=== PATIENT | female | born 1955 | race Caucasian/White ===

== ENCOUNTER 2020-01-07 12:11 | Emergency (ER) | payer OTHER ==
[~2020-01-07] VITALS: Ht 170.2 cm; Wt 118.2 kg
[2020-01-07 12:47] VITALS: BP 115/63
[2020-01-07] MEDS ORDERED: ONDANSETRON PF 4 MG/2 ML VIAL. IVP ONE (13:15)
--- NOTE | 2020-01-07 13:18 | PHYS DOC ---
Past History Past Medical History: Hypertension Past Surgical History: Cholecystectomy Alcohol Use: None General Adult EDM: Chief Complaint: DIARRHEA HPI: HPI: Patient is a 64-year-old female with complaint of diarrhea. Patient has been sick for the past 8 days, has been diagnosed with Covid yesterday, her test has not come back yet. Patient has had intermittent fevers usually at night, some nausea, cough, malaise, fatigue, explosive diarrhea. States her diarrhea is yellow and watery. She has episodes throughout the day and is unsure of how many. Review of Systems: Review of Systems: Constitutional: Fever Eyes: Denies change in visual acuity HENT: Denies nasal congestion or sore throat Respiratory: Cough but denies shortness of breath Cardiovascular: Denies chest pain or edema GI: Generalized intermittent abdominal pain, nausea, diarrhea : Denies dysuria Musculoskeletal: Denies back pain or joint pain Integument: Denies rash Neurologic: Denies headache, focal weakness or sensory changes Endocrine: Denies polyuria or polydipsia Lymphatic: Denies swollen glands Psychiatric: Denies depression or anxiety Allergies: Allergies: Allergies Coded Allergies Type Severity Reaction Last Updated Verified No Known Drug Allergies 01/07/20 No Physical Exam: PE: Constitutional: Well developed, well nourished, no acute distress, non-toxic appearance. [] HENT: Normocephalic, atraumatic, bilateral external ears normal, oropharynx moist, no oral exudates, nose normal. [] Eyes: PERRLA, EOMI, conjunctiva normal, no discharge. [] Neck: Normal range of motion, no tenderness, supple, no stridor. [] Cardiovascular:Heart rate regular rhythm, no murmur [] Lungs & Thorax: Bilateral breath sounds clear to auscultation [] Abdomen: Soft, nondistended, hyperactive bowel sounds, diffuse generalized tenderness. No rebound or guarding Skin: Warm, dry, no erythema, no rash. [] Back: No tenderness, no CVA tenderness. [] Extremities: No tenderness, no cyanosis, no clubbing, ROM intact, no edema. [] Neurologic: Alert and oriented X 3, normal motor function, normal sensory function, no focal deficits noted. [] Psychologic: Affect normal, judgement normal, mood normal. [] Current Patient Data: Vital Signs: Vital Signs Date Time Temp Pulse Resp B/P (MAP) Pulse Ox O2 Delivery O2 Flow Rate FiO2 01/07/20 12:47 98.6 72 24 115/63 (80) 98 Room Air EKG: EKG: [] Radiology/Procedures: Radiology/Procedures: CHEST AP ONLY 01/07/2020 1:14 PM INDICATION: Covid COMPARISON: None available TECHNIQUE: Portable frontal view of the chest is provided. FINDINGS: The cardiomediastinal silhouette is within normal limits. Lungs are clear. There are no significant pleural effusions. There is no pulmonary vascular congestion. No pneumothorax. No suspicious osseous abnormality. IMPRESSION: There is no acute cardiopulmonary process. [] Heart Score: Risk Factors: Risk Factors: DM, Current or recent (<one month) smoker, HTN, HLP, family history of CAD, obesity. Risk Scores: Score 0 - 3: 2.5% MACE over next 6 weeks - Discharge Home Score 4 - 6: 20.3% MACE over next 6 weeks - Admit for Clinical Observation Score 7 - 10: 72.7% MACE over next 6 weeks - Early Invasive Strategies Course & Med Decision Making: Course & Med Decision Making Pertinent Labs and Imaging studies reviewed. (See chart for details) Patient feeling better, labs unremarkable. No episodes of diarrhea while in the emergency department for 4 hours. [] Dragon Disclaimer: Dragon Disclaimer: This electronic medical record was generated, in whole or in part, using a voice recognition dictation system. Departure Departure: Impression: Primary Impression: Diarrhea due to COVID-19 Disposition: 01 DC HOME SELF CARE/HOMELESS Condition: IMPROVED Referrals: PCP,UNKNOWN (PCP) Patient Instructions: Diet for Diarrhea, Adult Scripts Dicyclomine Hcl (DICYCLOMINE HCL) 20 Mg Tablet 1 TAB PO TID PRN for DIARRHEA for 10 Days, #30 TAB 1 Refill Prov: TENNILLE HERRMANN MD 01/07/20 Ondansetron Hcl (ZOFRAN) 4 Mg Tablet 1 TAB PO PRN Q8HRS PRN for NAUSEA for 4 Days, #12 TAB Prov: TENNILLE HERRMANN MD 01/07/20 TENNILLE HERRMANN MD Jan 07, 2020 13:18
[2020-01-07 13:30] LABS: CALCIUM 8.6 mg/dL (8.5-10.1); GFR 56.2; POTASSIUM 3.4 mmol/L (3.5-5.1)
[2020-01-07 13:36] LABS: ALBUMIN 3.4 g/dL (3.4-5.0); ALBUMIN/GLOBULIN RATIO 0.8 (1.0-1.7); BASO % 1 % (0-3); EOS % 0 % (0-3); HEMATOCRIT 47.9 % (36.0-47.0); HEMOGLOBIN 15.8 g/dL (12.0-15.5); LYMPH # 1.3 x10^3/uL (1.0-4.8); LYMPH % 37 % (24-48); MEAN CORPUSCULAR HEMOGLOBIN 30 pg (25-35); MEAN CORPUSCULAR HGB CONC 33 g/dL (31-37); MEAN CORPUSCULAR VOLUME 92 fL (79-100); MONO # 0.3 x10^3/uL (0.0-1.1); MONO % 10 % (0-9); NEUT # 1.8 x10^3uL (1.8-7.7); NEUT % 52 % (31-73); PLATELET COUNT 191 x10^3/uL (140-400); RED CELL DISTRIBUTION WIDTH 13.5 % (11.5-14.5); TOTAL BILIRUBIN 0.7 mg/dL (0.2-1.0); TOTAL PROTEIN 7.6 g/dL (6.4-8.2); WHITE BLOOD COUNT 3.4 x10^3/uL (4.0-11.0)
--- NOTE | 2020-01-07 13:54 | RAD ---
CHEST AP ONLY 01/07/2020 1:14 PM INDICATION: Covid COMPARISON: None available TECHNIQUE: Portable frontal view of the chest is provided. FINDINGS: The cardiomediastinal silhouette is within normal limits. Lungs are clear. There are no significant pleural effusions. There is no pulmonary vascular congestion. No pneumothorax. No suspicious osseous abnormality. IMPRESSION: There is no acute cardiopulmonary process. Electronically signed by: Cinthya Cobb MD (01/07/2020 1:51 PM) [facility]
[2020-01-07] MEDS ORDERED: IV RINGERS SOLUTION,LACTATED 1,000 ML IV ONE (14:45)
[2020-01-07] MEDS ORDERED: DICYCLOMINE 20 MG/2 ML VIAL. IM ONE (14:45)
[2020-01-07] MEDS ORDERED: DICY20TA3 PO (16:29)
[2020-01-07] MEDS ORDERED: ONDA4TAB7 PO (16:29)
[2020-01-07] MEDS ORDERED: KETOROLAC 15 MG/ML VIAL. IVP ONE (16:30)
[2020-01-07] MEDS ORDERED: KETOROLAC 15 MG/ML VIAL. ONE (16:32)
== END 2020-01-07 16:41 | disposition home or self-care (01) ==
LOC: ER 12:11
DX: R19.7 Diarrhea, unspecified (principal); R50.9 Fever, unspecified; R05 Cough; R10.84 Generalized abdominal pain; I10 Essential (primary) hypertension; Z90.49 Acquired absence of other specified parts of digestive tract
CPT/HCPCS: 36415; 71045; 80053; 83690; 85025; 96361; 96372; 96374; 99284; J0500; J2405; J7120

== ENCOUNTER 2020-01-10 12:04 | Emergency (ER) | payer OTHER ==
[~2020-01-10] VITALS: Ht 170.2 cm; Wt 118.2 kg
[~2020-01-10 12:04] MED LIST: DICY20TA3 PO; ONDA4TAB7 PO
[2020-01-10] MEDS ORDERED: IV NORMAL SALINE 1,000ML 1,000 ML IV ONE (13:15)
[2020-01-10] MEDS ORDERED: ONDANSETRON PF 4 MG/2 ML VIAL. IVP ONE (13:30)
[2020-01-10] MEDS ORDERED: KETOROLAC 15 MG/ML VIAL. IVP ONE (13:30)
[2020-01-10] MEDS ORDERED: LOPERAMIDE 2 MG CAPSULE PO ONE (13:30)
[2020-01-10 14:02] LABS: BASO % 1 % (0-3); EOS % 0 % (0-3); HEMATOCRIT 44.5 % (36.0-47.0); HEMOGLOBIN 14.9 g/dL (12.0-15.5); LYMPH # 1.2 x10^3/uL (1.0-4.8); LYMPH % 34 % (24-48); MEAN CORPUSCULAR HEMOGLOBIN 31 pg (25-35); MEAN CORPUSCULAR HGB CONC 34 g/dL (31-37); MEAN CORPUSCULAR VOLUME 92 fL (79-100); MONO # 0.4 x10^3/uL (0.0-1.1); MONO % 12 % (0-9); NEUT # 1.8 x10^3uL (1.8-7.7); NEUT % 54 % (31-73); PLATELET COUNT 180 x10^3/uL (140-400); RED BLOOD COUNT 4.83 x10^6/uL (3.50-5.40); RED CELL DISTRIBUTION WIDTH 13.8 % (11.5-14.5); WHITE BLOOD COUNT 3.4 x10^3/uL (4.0-11.0)
[2020-01-10 14:03] LABS: CALCIUM 8.3 mg/dL (8.5-10.1); CREATININE 1.1 mg/dL (0.6-1.0); GFR 50.3; POTASSIUM 3.5 mmol/L (3.5-5.1)
[2020-01-10 14:09] LABS: ALBUMIN 2.9 g/dL (3.4-5.0); DIRECT BILIRUBIN 0.2 mg/dL (0.0-0.2); TOTAL BILIRUBIN 0.6 mg/dL (0.2-1.0); TOTAL PROTEIN 7.2 g/dL (6.4-8.2)
[2020-01-10 14:33] VITALS: BP 134/64
[2020-01-10] MEDS ORDERED: LOPE2TAB27 PO (14:45)
[2020-01-10] MEDS ORDERED: ONDA4TAB7 PO (14:45)
--- NOTE | 2020-01-10 14:46 | PHYS DOC ---
Past History Past Medical History: Hypertension Past Surgical History: Cholecystectomy Alcohol Use: None General Adult EDM: Chief Complaint: DIARRHEA HPI: HPI: 64-year-old female past medical history of covid, diagnosed 12/31 via [facility], presents the ED with complaints of multiple episodes of loose watery diarrhea for the past 9 days, stating anytime she eats something she has a bowel movement, associated anorexia. No recent antibiotics in the past few months, history of inflammatory bowel disease, recent travel poorly prepared foods, exposure to C. difficile or history of C. difficile infection. No black tarry stools or bright red blood in stools. No history of anemia requiring transfusion, is not in any anticoagulants. Patient was seen in the ED 3 days prior with same complaints and prescribed dicyclomine and an antemetic. States "I just feel miserable and it won't stop." K of 3.4 on 01/06. Review of Systems: Review of Systems: Constitutional: Denies fever or chills Eyes: Denies change in visual acuity HENT: Denies nasal congestion or sore throat Respiratory: Denies cough or shortness of breath Cardiovascular: Denies chest pain or edema GI: Denies abdominal pain, nausea, vomiting, melena, hematochezia, hematemesis : Denies dysuria or dysuria Musculoskeletal: Denies back pain or joint pain Integument: Denies rash Neurologic: Denies headache, focal weakness or sensory changes Endocrine: Denies polyuria or polydipsia Lymphatic: Denies swollen glands Psychiatric: Denies depression or anxiety Current Medications: Current Meds: Current Medications Medications (Trade) Dose Ordered Sig/Elle Start Time Stop Time Status Last Admin Dose Admin Ketorolac Tromethamine (Toradol 15mg Vial) 15 mg 1X ONCE 01/10/20 13:30 01/10/20 13:31 DC 01/10/20 13:30 15 MG Loperamide HCl (Imodium) 4 mg 1X ONCE 01/10/20 13:30 01/10/20 13:31 DC 01/10/20 13:30 4 MG Ondansetron HCl (Zofran) 4 mg 1X ONCE 01/10/20 13:30 01/10/20 13:31 DC 01/10/20 13:30 4 MG Sodium Chloride 1,000 ml @ 1,000 mls/hr 1X ONCE 01/10/20 13:15 01/10/20 14:14 DC 01/10/20 13:15 1,000 MLS/HR Allergies: Allergies: Allergies Coded Allergies Type Severity Reaction Last Updated Verified No Known Drug Allergies 01/07/20 No Physical Exam: PE: Constitutional: Well developed, well nourished, no acute distress, non-toxic appearance. HENT: Normocephalic, atraumatic, Eyes: EOMI, conjunctiva normal, no discharge. Neck: Normal range of motion, supple, Cardiovascular: S1/2 present, regular rhythm Lungs & Thorax: Speaking in full sentences, bilateral equal chest rise, no tachypnea or increased work of breathing Abdomen: soft, no tenderness, Skin: Warm, dry, no erythema, no rash. [] Back: No tenderness, no CVA tenderness. [] Extremities: No tenderness, no cyanosis, no edema Neurologic: Alert and oriented X 3, normal motor function, normal sensory function, no focal deficits noted. [] Psychologic: Affect normal, judgement normal, mood normal. [] Current Patient Data: Labs: Laboratory Tests Test 01/10/20 13:34 White Blood Count 3.4 x10^3/uL (4.0-11.0) L Red Blood Count 4.83 x10^6/uL (3.50-5.40) Hemoglobin 14.9 g/dL (12.0-15.5) Hematocrit 44.5 % (36.0-47.0) Mean Corpuscular Volume 92 fL (79-100) Mean Corpuscular Hemoglobin 31 pg (25-35) Mean Corpuscular Hemoglobin Concent 34 g/dL (31-37) Red Cell Distribution Width 13.8 % (11.5-14.5) Platelet Count 180 x10^3/uL (140-400) Neutrophils (%) (Auto) 54 % (31-73) Lymphocytes (%) (Auto) 34 % (24-48) Monocytes (%) (Auto) 12 % (0-9) H Eosinophils (%) (Auto) 0 % (0-3) Basophils (%) (Auto) 1 % (0-3) Neutrophils # (Auto) 1.8 x10^3uL (1.8-7.7) Lymphocytes # (Auto) 1.2 x10^3/uL (1.0-4.8) Monocytes # (Auto) 0.4 x10^3/uL (0.0-1.1) Eosinophils # (Auto) 0.0 x10^3/uL (0.0-0.7) Basophils # (Auto) 0.0 x10^3/uL (0.0-0.2) Sodium Level 137 mmol/L (136-145) Potassium Level 3.5 mmol/L (3.5-5.1) Chloride Level 101 mmol/L (98-107) Carbon Dioxide Level 27 mmol/L (21-32) Anion Gap 9 (6-14) Blood Urea Nitrogen 15 mg/dL (7-20) Creatinine 1.1 mg/dL (0.6-1.0) H Estimated GFR (Cockcroft-Gault) 50.3 Glucose Level 80 mg/dL (70-99) Calcium Level 8.3 mg/dL (8.5-10.1) L Total Bilirubin 0.6 mg/dL (0.2-1.0) Direct Bilirubin 0.2 mg/dL (0.0-0.2) Aspartate Amino Transferase (AST) 155 U/L (15-37) H Alanine Aminotransferase (ALT) 78 U/L (14-59) H Alkaline Phosphatase 93 U/L (46-116) Total Protein 7.2 g/dL (6.4-8.2) Albumin 2.9 g/dL (3.4-5.0) L Vital Signs: Vital Signs Date Time Temp Pulse Resp B/P (MAP) Pulse Ox O2 Delivery O2 Flow Rate FiO2 01/10/20 14:33 69 16 134/64 (87) 98 Room Air 01/10/20 13:03 98.0 EKG: EKG: [] Radiology/Procedures: Radiology/Procedures: [] Heart Score: Risk Factors: Risk Factors: DM, Current or recent (<one month) smoker, HTN, HLP, family history of CAD, obesity. Risk Scores: Score 0 - 3: 2.5% MACE over next 6 weeks - Discharge Home Score 4 - 6: 20.3% MACE over next 6 weeks - Admit for Clinical Observation Score 7 - 10: 72.7% MACE over next 6 weeks - Early Invasive Strategies Course & Med Decision Making: Course & Med Decision Making Pertinent Labs and Imaging studies reviewed. (See chart for details) Concern for loose watery diarrhea in the setting of COVID-19. Loperamide given in ED. Patient with no BM during ED stay (I offered stool studies). No electrolyte abnormality on labs. Pt HD stable with no tachycardia. Will DC home with Zofran and loperamide as needed. Strict ED return precautions were given for severe abdominal pain, bloody stools, malodorous stools, dehydration or worsening diarrhea. Encouraged urgent outpatient follow-up with PMD and GI. Life-threatening processes were considered but are low suspicion at this time, given history and physical exam. Pt was educated on all prescription medications and adverse effects. All patient's questions were answered and pt was stable at time of discharge. Life/limb-threatening differential includes but is not limited to, GI bleeding, toxigenic versus infectious diarrhea, shock, mesenteric ischemia, electrolyte abnormality, thyroid storm, toxidrome, antibiotic related, inflammatory bowel disease or surgical abdomen (appendicitis or diverticulitis). I spoken with the patient and her caregivers. I explained the patient's condition, diagnoses and treatment plan based on the information available to me at this time. I have answered the patient and her caregiver's questions and addressed any concerns. The patient and her caregivers have a good understanding of patient's diagnosis, condition and treatment plan as can be e xpected at this point. Vital signs have been stable. Patient's condition is stable and appropriate for discharge from the emergency department. Patient will pursue further outpatient evaluation with primary care physician or other designated or consulting physician as outlined in the discharge instructions. The patient and/or caregivers are agreeable to this plan of care and follow-up instructions have been explained in detail. The patient and/or caregivers have received these instructions in written form and have expressed an understanding of the discharge instructions. The patient and/or caregivers are aware that any significant change of condition or worsening of symptoms should prompt immediate return to this or the closest emergency department or call to 911. Saurav Disclaimer: Saurav Disclaimer: This electronic medical record was generated, in whole or in part, using a voice recognition dictation system. Departure Departure: Impression: Primary Impression: Diarrhea due to COVID-19 Disposition: DC HOME SELF CARE/HOMELESS Condition: STABLE Referrals: EFRAIN LOPEZ (PCP) Patient Instructions: Diarrhea Additional Instructions: FOLLOW UP WITH GASTROENTEROLOGY: [facility] [address], [address], [place] [address] You have been tested for or diagnosed with COVID-19. It is an infection caused by a new type of coronavirus. COVID-19 will cause cold-like or mild flu symptoms in most. It can cause more severe symptoms like problems breathing in some. There is no treatment for COVID-19. The body will clear the infection over time. Self-care will help to ease discomfort. Steps to Take: Self-Care Rest as needed. Healthy habits may help you feel better. Steps include: Choose healthy foods including fruits and vegetables. Drink water throughout the day. Get plenty of sleep each night. If you smoke, try to quit. It may ease breathing. Avoid alcohol. Keep Others Healthy The virus can spread to others. Droplets are released every time you sneeze or cough. The droplets can get into the mouth, nose, or eyes of people near you and lead to infection. To lower the chances of spreading COVID-19 to others: Stay at home until your doctor has said it is safe to leave. If you tested positive this will mean staying isolated until both of the following are true: At least 7 days have passed since the start of illness. You are free of fever for at least 72 hours without the use of medicine. During this time: - Avoid public areas, events, or transportation. Do not return to work or school until your doctor has said it is safe to do so. - Call ahead if you need to go to a medical center. Let them know you may have COVID-19. It will help them guide you where to go. They may also ask you to wear a facemask when you come to the office. - If you call for emergency medical services, let them know you may have COVID- 19. While at home: - Try to avoid close contact with others. Stay about 6 feet away. - If possible, spend most of your time in a separate room from others. - Use a face mask if you will be in close contact with others such as sharing a room or vehicle. - Have someone wipe down common surfaces in the home. Use household manager intermediate every day on areas like doorknobs, counters, or sinks. - Cough or sneeze into a tissue. Throw the tissue away right after use. If a tissue is not available, cough or sneeze into your elbow. - Wash your hands often. Wash them after sneezing or coughing. Use soap and water and wash for at least 20 seconds. Alcohol based hand conduit cleaner can be used if soap and water is not available. - Do not prepare food for others. Avoid sharing personal items like forks, spoons, or toothbrushes. - Avoid close contact with pets while you are sick. There is no evidence of the virus passing to pets. This is a safety step until more is known about this virus. Isolation can be frustrating. Social interaction can help. Keep in touch with friends and family through phone and tech options. You can still interact with others in your home, just keep a safe distance of about 6 feet. Follow-up: Your doctors office will check in with you to see if there are any changes in your health. You may be asked to keep track of symptoms to share with them. They will also let you know when you are clear to be in public again. Problems to Look Out For: Contact your doctor if your recovery is not going as you expect. Get emergency care if you have problems such as: - Trouble breathing - Nonstop chest pain or pressure - Changes in awareness, confusion, or problems waking - Lips or face have bluish color - Worsening of symptoms If you think you have an emergency, call for emergency medical services right a way. As taken from [facility] Script[facility] Ondansetron Hcl (ZOFRAN) 4 Mg Tablet 1 TAB PO PRN Q6HRS PRN for NAUSEA, #10 TAB Prov: YUE MENDES DO 01/10/20 Loperamide Hcl (LOPERAMIDE) 2 Mg Tablet 2 MG PO PRN PRN for DIARRHEA MDD 16mg, #10 TAB Prov: YUE MENDES DO 01/10/20 YUE MENDES DO Jan 10, 2020 14:46
== END 2020-01-10 15:02 | disposition home or self-care (01) ==
LOC: ER 12:04
DX: U07.1 COVID-19 (principal); R19.7 Diarrhea, unspecified; I10 Essential (primary) hypertension; Z90.49 Acquired absence of other specified parts of digestive tract
CPT/HCPCS: 36415; 80048; 80076; 85025; 96361; 96374; 96375; 99284; J1885; J2405; J7030